=== PATIENT | female | born 1960 | race Caucasian/White ===

== ENCOUNTER 2020-08-19 22:22 | Inpatient (IN) | payer MEDICAID, OTHER ==
[~2020-08-19] VITALS: Ht 170.2 cm; Wt 75.3 kg
[~2020-08-19 22:22] MED LIST: HYDR-1348 PO; IBUP-779 PO
[2020-08-19] MEDS ORDERED: KETOROLAC 30MG/ML VIAL IV STA (23:51)
[2020-08-20] MEDS ORDERED: SODIUM CHLORIDE 0.9% 1,000 ML IV ONE
[2020-08-20 00:39] LABS: HEMATOCRIT. 36.6 % (36.0-48.0); HEMOGLOBIN. 12.1 g/dL (12.0-16.0); MEAN CORPUSCULAR VOLUME 84.8 fL (81.0-99.0); MEAN PLATELET VOLUME 7.7 fl (7.4-10.4); PLATELET 193 x1000/uL (130-400); RED BLOOD CELL COUNT 4.32 mill/uL (4.2-5.4); RED CELL DISTRIBUTION WIDTH 13.8 % (11.6-14.6)
[2020-08-20 00:59] LABS: CHLORIDE 105 mEq/L (98-107); PROTHROMBIN TIME 10.9 sec (9.6-11.0)
[2020-08-20 01:04] LABS: ETHANOL BLOOD < 10 mg/dL
[2020-08-20 01:15] LABS: PLATELET ESTIMATE NORMAL
[2020-08-20] MEDS ORDERED: MORPHINE SULFATE 4 MG/ML CPJ (NOT FOR IM USE) IV ONE (04:30)
[2020-08-20 07:16] LABS: CLARITY URINE CLEAR (CLEAR); COLOR URINE DARK YELLOW (YELLOW); KETONES URINE NEGATIVE (NEGATIVE); LEUKOCYTE ESTERASE URINE TRACE (NEGATIVE); NITRITE URINE NEGATIVE (NEGATIVE); OCCULT BLOOD URINE NEGATIVE (NEGATIVE); PROTEIN URINE NEGATIVE (NEGATIVE); SPECIFIC GRAVITY URINE 1.049 (1.005-1.030)
[2020-08-20 07:33] LABS: *AMPHETAMINES SCREEN URINE NEGATIVE (NEGATIVE); *BARBITURATES SCREEN URINE NEGATIVE (NEGATIVE)
[2020-08-20 07:34] LABS: *BENZODIAZEPINES SCREEN URINE NEGATIVE (NEGATIVE); *COCAINE SCREEN URINE PRESUMTIVE POSITIVE (NEGATIVE); CANNABINOID URINE SCREEN PRESUMTIVE POSITIVE (NEGATIVE); METHADONE URINE SCREEN NEGATIVE (NEGATIVE); OPIATES URINE SCREEN NEGATIVE (NEGATIVE); PHENCYCLIDINE URINE SCREEN NEGATIVE (NEGATIVE)
[2020-08-20] MEDS ORDERED: ONDANSETRON HCL 4MG/2ML INJ IV PRN (09:30)
[2020-08-20] MEDS ORDERED: CLONIDINE 0.1MG TABLET PO PRN (09:30)
[2020-08-20] MEDS ORDERED: ACETAMINOPHEN 325MG TABLET PO PRN (09:30)
[2020-08-20] MEDS: SODIUM CHLORIDE 0.9% 1,000 ML IV SCH ×2 (09:30→23:09)
[2020-08-20] MEDS ORDERED: DIPHENHYDRAMINE 50MG/ML VIAL IV PRN (09:30)
[2020-08-20] MEDS: MORPHINE SULFATE 2 MG/ML CPJ (NOT FOR IM USE) IV PRN ×2 (12:38→21:21)
[2020-08-20] MEDS ORDERED: POTASSIUM CHLORIDE 20MEQ TABLET SR PO NR (12:45)
[2020-08-20 13:52] VITALS: BP 116/86
[2020-08-20] MEDS ORDERED: QUET400T MT (14:07)
[2020-08-20] MEDS: PANTOPRAZOLE SODIUM 40 MG/VIAL IV SCH (15:38)
[2020-08-20 20:00] VITALS: BP 100/50
[2020-08-20] MEDS: QUETIAPINE FUMARATE 50MG TABLET PO SCH (20:40)
[2020-08-21] VITALS: BP 108/56
[2020-08-21 04:00] VITALS: BP 122/66
[2020-08-21 05:18] LABS: BASOPHILS % 0.6 % (0.0-2.0); EOSINOPHILS % 2.7 % (0.0-5.0); HEMATOCRIT. 39.7 % (36.0-48.0); HEMOGLOBIN. 12.8 g/dL (12.0-16.0); LYMPHOCYTES % 10.8 % (20.0-50.0); MEAN CORPUSCULAR HEMOGLOBIN 27.8 pg (28.0-32.0); MEAN CORPUSCULAR VOLUME 86.4 fL (81.0-99.0); MEAN PLATELET VOLUME 8.3 fl (7.4-10.4); MONOCYTES % 6.6 % (2.0-8.0); NEUTROPHILS % 79.3 % (40.0-76.0); PLATELET 159 x1000/uL (130-400); RED CELL DISTRIBUTION WIDTH 14.6 % (11.6-14.6)
[2020-08-21 05:29] LABS: CHLORIDE 109 mEq/L (98-107)
[2020-08-21 05:36] LABS: LDL CHOLESTEROL 85 mg/dL (5-100)
[2020-08-21 05:37] LABS: HDL CHOLESTEROL 43 mg/dL (40-59)
[2020-08-21 08:00] VITALS: BP 121/71
[2020-08-21] MEDS: SODIUM CHLORIDE 0.9% 1,000 ML IV SCH ×2 (09:18→18:48)
[2020-08-21] MEDS: PANTOPRAZOLE SODIUM 40 MG/VIAL IV SCH (09:18)
[2020-08-21] MEDS: MORPHINE SULFATE 2 MG/ML CPJ (NOT FOR IM USE) IV PRN ×2 (09:19→16:14)
[2020-08-21 16:00] VITALS: BP 131/67
[2020-08-21 20:00] VITALS: BP 128/67
[2020-08-21] MEDS: QUETIAPINE FUMARATE 50MG TABLET PO SCH (21:06)
[2020-08-22] VITALS: BP 101/76
[2020-08-22] MEDS: SODIUM CHLORIDE 0.9% 1,000 ML IV SCH (03:25)
[2020-08-22 04:00] VITALS: BP 112/57
[2020-08-22 06:14] LABS: BASOPHILS % 0.9 % (0.0-2.0); EOSINOPHILS % 3.6 % (0.0-5.0); HEMATOCRIT. 32.9 % (36.0-48.0); HEMOGLOBIN. 10.9 g/dL (12.0-16.0); LYMPHOCYTES % 28.9 % (20.0-50.0); MEAN CORPUSCULAR HEMOGLOBIN 28.1 pg (28.0-32.0); MEAN CORPUSCULAR VOLUME 84.8 fL (81.0-99.0); MEAN PLATELET VOLUME 8.5 fl (7.4-10.4); MONOCYTES % 10.7 % (2.0-8.0); NEUTROPHILS % 55.9 % (40.0-76.0); PLATELET 191 x1000/uL (130-400); RED BLOOD CELL COUNT 3.88 mill/uL (4.2-5.4); RED CELL DISTRIBUTION WIDTH 14.3 % (11.6-14.6)
[2020-08-22 06:46] LABS: CHLORIDE 112 mEq/L (98-107)
[2020-08-22 08:00] VITALS: BP 96/63
[2020-08-22] MEDS ORDERED: FAMOTIDINE 20MG/2ML VIAL IV SCH (09:00)
[2020-08-22 12:00] VITALS: BP 130/69
[2020-08-22 15:07] VITALS: BP 130/65
[2020-08-22 15:25] VITALS: BP 130/65
[2020-08-22] MEDS: MORPHINE SULFATE 2 MG/ML CPJ (NOT FOR IM USE) IV PRN (15:25)
[2020-08-23] MEDS ORDERED: OMEPRAZOLE 20MG CAPSULE EXTENDED RELEASE PO SCH (06:45)
== END 2020-08-22 16:56 | disposition home or self-care (01) ==
LOC: ER 22:22 → MICUSO 08-20 04:52 → EDBEDREQSVC 08-20 08:50 → CANRESERV 08-20 10:01 → ENRESERV 08-20 10:01 → 7WST 08-20 11:37 → 5WST 08-20 23:52
PROVIDERS: ADMIT Internal Medicine; ATTEND Internal Medicine
DX: K80.64 Calculus of gallbladder and bile duct with chronic cholecystitis without obstruction (principal); D72.825 Bandemia; E87.6 Hypokalemia; R16.0 Hepatomegaly, not elsewhere classified; E80.6 Other disorders of bilirubin metabolism; F19.10 Other psychoactive substance abuse, uncomplicated; Z20.822 Contact with and (suspected) exposure to COVID-19; F17.210 Nicotine dependence, cigarettes, uncomplicated; R74.01 Elevation of levels of liver transaminase levels; F12.90 Cannabis use, unspecified, uncomplicated; N13.30 Unspecified hydronephrosis; Z79.899 Other long term (current) drug therapy
CPT/HCPCS: 36415; 71045; 74177; 74181; 76700; 78227; 80048; 80053; 80061; 80076; 80305; 80320; 81003; 82248; 84443; 84484; 85025; 93005; 93970; 99291; A9537; C9113; J1885; J2270; J2405; J3490; J7030; U0003; G0480

== ENCOUNTER 2021-12-02 16:04 | Inpatient (IN) | payer MEDICAID, OTHER ==
[~2021-12-02] VITALS: Ht 167.6 cm; Wt 72.7 kg
[~2021-12-02 16:04] MED LIST changes: +QUET400T MT
[2021-12-02 16:43] LABS: BASOPHILS % 0.8 % (0.0-2.0); EOSINOPHILS % 2.5 % (0.0-5.0); HEMATOCRIT. 39.1 % (36.0-48.0); HEMOGLOBIN. 12.7 g/dL (12.0-16.0); LYMPHOCYTES % 32.6 % (20.0-50.0); MEAN CORPUSCULAR HEMOGLOBIN 26.8 pg (28.0-32.0); MEAN CORPUSCULAR VOLUME 82.4 fL (81.0-99.0); MEAN PLATELET VOLUME 7.5 fl (7.4-10.4); MONOCYTES % 6.9 % (2.0-8.0); NEUTROPHILS % 57.2 % (40.0-76.0); PLATELET 279 x1000/uL (130-400); RED BLOOD CELL COUNT 4.75 mill/uL (4.2-5.4); RED CELL DISTRIBUTION WIDTH 14.8 % (11.6-14.6)
[2021-12-02 16:47] LABS: CHLORIDE 107 mEq/L (98-107)
[2021-12-02 17:31] LABS: CLARITY URINE CLOUDY (CLEAR); COLOR URINE YELLOW (YELLOW); KETONES URINE NEGATIVE (NEGATIVE); LEUKOCYTE ESTERASE URINE NEGATIVE (NEGATIVE); NITRITE URINE NEGATIVE (NEGATIVE); OCCULT BLOOD URINE NEGATIVE (NEGATIVE); PH URINE 7.5 (4.5-8.0); PROTEIN URINE TRACE (NEGATIVE); SPECIFIC GRAVITY URINE 1.018 (1.005-1.030)
[2021-12-02] MEDS ORDERED: ONDANSETRON HCL 4MG/2ML INJ IV STA (18:30)
[2021-12-02] MEDS ORDERED: MORPHINE SULFATE 4 MG/ML CPJ (NOT FOR IM USE) IV STA (18:30)
[2021-12-02] MEDS ORDERED: SODIUM CHLORIDE 0.9% 1,000 ML IV ONE (18:30)
[2021-12-02] MEDS ORDERED: PANTOPRAZOLE SODIUM 40 MG/VIAL IV ONE (19:15)
[2021-12-02 20:03] LABS: PARTIAL THROMBOPLASTIN TIME 28.2 sec (23.4-31.0)
[2021-12-02] MEDS ORDERED: NALOXONE HCL 0.4 MG/ML 1ML VIAL IV PRN (23:45)
[2021-12-03] MEDS: QUETIAPINE FUMARATE 50MG TABLET PO SCH ×2 (00:15→21:41)
[2021-12-03] MEDS: HYDROCODONE/ACETAMINOPHEN 5/325MG TABLET PO PRN ×4 (00:16→21:41)
[2021-12-03 04:55] VITALS: BP 122/80
[2021-12-03 08:02] VITALS: BP 100/64
[2021-12-03 12:15] VITALS: BP 104/65
[2021-12-03] MEDS ORDERED: MAGNESIUM/ALUMINUM HYDROXIDE/SIMETHICONE 30ML UDC PO PRN (15:15)
[2021-12-03] MEDS ORDERED: CLONIDINE 0.1MG TABLET PO PRN (15:15)
[2021-12-03] MEDS ORDERED: ONDANSETRON HCL 4MG/2ML INJ IV PRN (15:15)
[2021-12-03] MEDS ORDERED: ACETAMINOPHEN 325MG TABLET PO PRN (15:15)
[2021-12-03 16:30] VITALS: BP 132/82
[2021-12-03] MEDS: PANTOPRAZOLE SODIUM 40 MG/VIAL IV SCH (16:58)
[2021-12-03] MEDS ORDERED: LORAZEPAM 2MG/ML CPJ IV PRN (17:15)
[2021-12-03] MEDS ORDERED: BISACODYL 5MG TABLET PO NR (17:15)
[2021-12-03 20:00] VITALS: BP 120/79
[2021-12-03] MEDS ORDERED: ENOXAPARIN 40MG/0.4ML SYR SUBCUT SCH (21:00)
[2021-12-03] MEDS ORDERED: SENNOSIDES/DOCUSATE SOD 8.6/50MG TABLET PO SCH (21:00)
[2021-12-04] VITALS: BP 136/85
[2021-12-04 04:00] VITALS: BP 104/74
[2021-12-04 06:44] LABS: BASOPHILS % 0.9 % (0.0-2.0); EOSINOPHILS % 3.6 % (0.0-5.0); HEMATOCRIT. 37.5 % (36.0-48.0); HEMOGLOBIN. 12.3 g/dL (12.0-16.0); LYMPHOCYTES % 45.8 % (20.0-50.0); MEAN CORPUSCULAR HEMOGLOBIN 27.3 pg (28.0-32.0); MEAN CORPUSCULAR VOLUME 83.3 fL (81.0-99.0); MEAN PLATELET VOLUME 7.6 fl (7.4-10.4); MONOCYTES % 7.6 % (2.0-8.0); NEUTROPHILS % 42.1 % (40.0-76.0); PLATELET 238 x1000/uL (130-400); RED BLOOD CELL COUNT 4.51 mill/uL (4.2-5.4); RED CELL DISTRIBUTION WIDTH 14.9 % (11.6-14.6)
[2021-12-04 07:21] LABS: FOLIC ACID (FOLATE) SERUM 9.7 ng/mL (>5.38)
[2021-12-04 07:49] LABS: CHLORIDE 108 mEq/L (98-107)
[2021-12-04 07:58] LABS: PHOSPHORUS 3.6 mg/dL (2.5-4.9); TOTAL IRON BINDING CAPACITY 429 ug/dL (250-450)
[2021-12-04 08:00] VITALS: BP 139/87
[2021-12-04] MEDS ORDERED: POLYETHYLENE GLYCOL 3350 (17GM) 1 DOSE PACK PO SCH (09:00)
[2021-12-04] MEDS: PANTOPRAZOLE SODIUM 40 MG/VIAL IV SCH (10:06)
[2021-12-04] MEDS: HYDROCODONE/ACETAMINOPHEN 5/325MG TABLET PO PRN (10:31)
[2021-12-04] MEDS ORDERED: OMEP40CA20 MT (11:57)
[2021-12-04 12:00] VITALS: BP 128/90
[2021-12-04 14:26] VITALS: BP 128/90
[2021-12-04 16:00] VITALS: BP 128/85
== END 2021-12-04 16:57 | disposition home or self-care (01) | DRG 241 ==
LOC: ER 16:04 → MICUSO 21:22 → EDBEDREQTM 21:27 → EDBEDREQ 21:27 → 6WST 12-03 02:24
PROVIDERS: ADMIT Internal Medicine; ATTEND Internal Medicine
DX: K29.01 Acute gastritis with bleeding (principal); R16.0 Hepatomegaly, not elsewhere classified; J98.11 Atelectasis; J44.9 Chronic obstructive pulmonary disease, unspecified; K21.9 Gastro-esophageal reflux disease without esophagitis; K44.9 Diaphragmatic hernia without obstruction or gangrene; I10 Essential (primary) hypertension; E87.6 Hypokalemia; E66.9 Obesity, unspecified; F32.A Depression, unspecified; F17.210 Nicotine dependence, cigarettes, uncomplicated; F14.90 Cocaine use, unspecified, uncomplicated; F19.11 Other psychoactive substance abuse, in remission; R70.1 Abnormal plasma viscosity; Z72.89 Other problems related to lifestyle; Z68.25 Body mass index [BMI] 25.0-25.9, adult; R11.10 Vomiting, unspecified
CPT/HCPCS: 36415; 71045; 74176; 80048; 80053; 80076; 81003; 82728; 82746; 83540; 83550; 83735; 84100; 84484; 85025; 85044; 86850; 86900; 93005; 99285; C9113; J1650; J2270; J2405; J7030

== ENCOUNTER 2022-03-03 10:04 | Emergency (ER) | payer OTHER ==
[~2022-03-03] VITALS: Ht 167.6 cm; Wt 91.0 kg
[~2022-03-03 10:04] MED LIST changes: +OMEP40CA20 MT
[2022-03-03] MEDS ORDERED: FAMOTIDINE 20MG/2ML VIAL IV STA (10:23)
[2022-03-03] MEDS ORDERED: VISCOUS LIDOCAINE 2% 15 ML UDC PO STA (10:23)
[2022-03-03] MEDS ORDERED: MAGNESIUM/ALUMINUM HYDROXIDE/SIMETHICONE 30ML UDC PO STA (10:23)
[2022-03-03] MEDS ORDERED: DICYCLOMINE 10 MG/5 ML ORAL SYR PO STA (10:23)
[2022-03-03 10:48] LABS: BASOPHILS % 0.8 % (0.0-2.0); EOSINOPHILS % 2.8 % (0.0-5.0); HEMATOCRIT. 40.7 % (36.0-48.0); LYMPHOCYTES % 41.2 % (20.0-50.0); MEAN CORPUSCULAR HEMOGLOBIN 26.7 pg (28.0-32.0); MEAN CORPUSCULAR VOLUME 83.2 fL (81.0-99.0); MONOCYTES % 7.7 % (2.0-8.0); NEUTROPHILS % 47.5 % (40.0-76.0); PLATELET 259 x1000/uL (130-400); RED BLOOD CELL COUNT 4.89 mill/uL (4.2-5.4); RED CELL DISTRIBUTION WIDTH 15.1 % (11.6-14.6)
[2022-03-03 10:55] LABS: CHLORIDE 109 mEq/L (98-107)
[2022-03-03] MEDS ORDERED: OMEP20TA23 PO (11:26)
[2022-03-03 11:48] VITALS: BP 106/66
== END 2022-03-03 12:08 | disposition home or self-care (01) ==
LOC: ER 10:21
DX: R10.11 Right upper quadrant pain (principal); K21.9 Gastro-esophageal reflux disease without esophagitis; Z87.11 Personal history of peptic ulcer disease
CPT/HCPCS: 36415; 80053; 83690; 85025; 85610; 96374; 99284; J3490; Z7610